=== PATIENT | female | born 1985 | race Caucasian/White ===

== ENCOUNTER 2020-04-17 19:00 | Inpatient (IN) | payer MEDICAID, OTHER ==
[~2020-04-17] VITALS: Ht 154.9 cm; Wt 82.1 kg
[2020-04-17] MEDS ORDERED: QUET300T2 PO (19:09)
[2020-04-17] MEDS ORDERED: GABA-1181 PO (19:09)
[2020-04-17 19:54] LABS: BASOPHILS % (AUTO) 0.9 % (0.0-2.0); EOSINOPHILS % (AUTO) 1.2 % (1.0-6.0); HEMATOCRIT 42.9 % (36-46); HEMOGLOBIN 14.1 g/dL (12.0-16.0); LYMPHOCYTES # (AUTO) 2.3 K/uL (1.0-4.8); LYMPHOCYTES % (AUTO) 21.5 % (22.0-44.0); MEAN CORPUSCULAR HEMOGLOBIN 28.8 pg (26.0-34.0); MEAN CORPUSCULAR HGB CONC 32.9 G/dL (31.0-37.0); MEAN CORPUSCULAR VOLUME 88 fL (80-100); MONOCYTES # (AUTO) 0.4 K/uL (0.1-1.0); MONOCYTES % (AUTO) 4.2 % (2.0-9.0); NEUTROPHILS # (AUTO) 7.6 K/uL (1.8-7.7); NEUTROPHILS % (AUTO) 72.2 % (40.0-70.0); PLATELET COUNT (AUTO) 268 K/uL (150-450); RED CELL DISTRIBUTION WIDTH 13.2 % (11.5-14.5)
[2020-04-17 20:31] LABS: ANION GAP 9 mmol/L (8-16); CALCIUM, TOTAL 9.2 mg/dL (8.8-10.5); CARBON DIOXIDE 25 mmol/L (22-29); CHLORIDE 103 mmol/L (98-107); CREATININE 0.93 mg/dL (0.60-1.30); GLOMERULAR FILTR. RATE CALC > 60 mL/min (>60); GLUCOSE,RANDOM 107 mg/dL (70-110); POTASSIUM 4.3 mmol/L (3.5-5.1); SODIUM SERUM 137 mmol/L (136-145); UREA NITROGEN, BLOOD 7 mg/dL (7-18)
[2020-04-17 20:45] LABS: ALANINE AMINOTRANSFERASE 20 U/L (12-78); ALBUMIN 4.1 g/dL (3.4-5.0); ALKALINE PHOSPHATASE 58 U/L (46-116); ASPARTATE AMINOTRANSFERASE 105 U/L (15-37); BILIRUBIN,TOTAL 0.3 mg/dL (0.1-1.0); HCG,QUANTITATIVE 1 mIU/mL (0-6); TOTAL PROTEIN, SERUM 7.4 g/dL (6.4-8.2)
[2020-04-18] MEDS ORDERED: QUEtiapine FUMARATE 100 MG TABLET PO PRN (00:45)
[2020-04-18 04:35] VITALS: BP 106/78
[2020-04-18 08:09] VITALS: BP 112/58
[2020-04-18] MEDS: GABAPENTIN 300 MG CAPSULE PO SCH ×2 (08:51→12:02)
[2020-04-18] MEDS: LORazepam 2 MG TABLET PO PRN ×2 (10:00→17:15)
[2020-04-18] MEDS ORDERED: ACETAMINOPHEN 325 MG TABLET PO PRN (14:45)
[2020-04-18] MEDS ORDERED: HydrOXYzine PAMOATE 50 MG CAPSULE PO PRN (14:45)
[2020-04-18] MEDS ORDERED: GuaiFENesin/D-METHORPHAN [SUGAR-FREE] 200-20MG/10 ML SYRUP UDCUP PO PRN (14:45)
[2020-04-18] MEDS ORDERED: TUBERCULIN, PURIFIED PROTEIN DERIVATIVE 5 TU/0.1 ML SYRINGE ID ONE (14:45)
[2020-04-18] MEDS ORDERED: MAG HYDROX/AL HYDROX/SIMETH ES 30 ML SUSPENSION UDCUP PO PRN (14:45)
[2020-04-18] MEDS ORDERED: LOPERAMIDE HCL 2 MG CAPSULE PO PRN (14:45)
[2020-04-18] MEDS ORDERED: PROMETHAZINE HCL 25 MG TABLET PO PRN (14:45)
[2020-04-18] MEDS ORDERED: MAGNESIUM HYDROXIDE SUSPENSION 30 ML UDCUP PO PRN (14:45)
[2020-04-18 16:39] VITALS: BP 130/70
[2020-04-18] MEDS: LITHIUM CARBONATE 300 MG CAPSULE PO SCH (16:45)
[2020-04-18] MEDS: THIAMINE 100 MG TABLET PO SCH (16:45)
[2020-04-18] MEDS: LamoTRIgine 25 MG TABLET PO SCH (20:54)
[2020-04-18] MEDS: ZOLPIDEM TARTRATE 10 MG TABLET PO PRN (20:55)
[2020-04-18] MEDS: QUEtiapine FUMARATE 100 MG TABLET PO SCH (20:55)
[2020-04-18] MEDS ORDERED: QUEtiapine FUMARATE 300 MG TABLET PO SCH ×2 (21:00)
[2020-04-19 02:22] VITALS: BP 128/70
[2020-04-19] MEDS: LITHIUM CARBONATE 300 MG CAPSULE PO SCH ×2 (06:14→16:35)
[2020-04-19 08:15] LABS: LITHIUM 0.76 mmol/L (0.60-1.20)
[2020-04-19] MEDS: MULTIVITAMINS WITH MINERALS, THERAPEUTIC TABLET PO SCH (08:23)
[2020-04-19] MEDS: THIAMINE 100 MG TABLET PO SCH ×2 (08:23→16:35)
[2020-04-19] MEDS: FOLIC ACID 1 MG TABLET PO SCH (08:23)
[2020-04-19 08:25] VITALS: BP 105/70
[2020-04-19] MEDS: LORazepam 2 MG TABLET PO PRN (08:26)
[2020-04-19 08:50] LABS: CHOL/HDL RATIO 5.2 (3.9-5.7); FREE T4 (FREE THYROXINE) 0.99 ng/dL (0.76-1.46); THYROID STIMULATING HORMONE 1.16 uIU/mL (0.36-3.74)
[2020-04-19 16:55] VITALS: BP 121/91
[2020-04-19] MEDS: ZOLPIDEM TARTRATE 10 MG TABLET PO PRN (20:25)
[2020-04-19] MEDS: LamoTRIgine 25 MG TABLET PO SCH (20:25)
[2020-04-19] MEDS: QUEtiapine FUMARATE 100 MG TABLET PO SCH (20:26)
[2020-04-20 04:37] VITALS: BP 114/82
[2020-04-20] MEDS: LITHIUM CARBONATE 300 MG CAPSULE PO SCH ×2 (06:19→16:41)
[2020-04-20] MEDS: MULTIVITAMINS WITH MINERALS, THERAPEUTIC TABLET PO SCH (08:01)
[2020-04-20] MEDS: FOLIC ACID 1 MG TABLET PO SCH (08:01)
[2020-04-20] MEDS: THIAMINE 100 MG TABLET PO SCH ×2 (08:03→16:41)
[2020-04-20] MEDS: LITHIUM CARBONATE 300 MG TABLET PO SCH (08:03)
[2020-04-20 08:08] VITALS: BP 112/73
[2020-04-20] MEDS: LORazepam 2 MG TABLET PO PRN (08:20)
[2020-04-20] MEDS: NICOTINE 14 MG/24 HOUR PATCH TD SCH (13:12)
[2020-04-20 16:03] VITALS: BP 120/76
[2020-04-20] MEDS: LamoTRIgine 25 MG TABLET PO SCH (20:18)
[2020-04-20] MEDS: ZOLPIDEM TARTRATE 10 MG TABLET PO PRN (20:18)
[2020-04-20] MEDS ORDERED: QUEtiapine FUMARATE 200 MG TABLET PO SCH (21:00)
[2020-04-21 06:11] VITALS: BP 109/77
[2020-04-21] MEDS: LITHIUM CARBONATE 300 MG CAPSULE PO SCH ×3 (06:37→16:53)
[2020-04-21] MEDS: MULTIVITAMINS WITH MINERALS, THERAPEUTIC TABLET PO SCH (07:44)
[2020-04-21] MEDS: LITHIUM CARBONATE 300 MG TABLET PO SCH (07:44)
[2020-04-21] MEDS: FOLIC ACID 1 MG TABLET PO SCH (07:44)
[2020-04-21] MEDS: THIAMINE 100 MG TABLET PO SCH ×2 (07:44→17:10)
[2020-04-21 08:21] VITALS: BP 105/73
[2020-04-21] MEDS: NICOTINE 14 MG/24 HOUR PATCH TD SCH (09:26)
[2020-04-21 16:00] VITALS: BP 109/75
[2020-04-21] MEDS: QUEtiapine FUMARATE 200 MG TABLET PO SCH (20:42)
[2020-04-21] MEDS: LamoTRIgine 25 MG TABLET PO SCH (20:43)
[2020-04-21] MEDS: ZOLPIDEM TARTRATE 10 MG TABLET PO PRN (21:20)
[2020-04-22 02:19] VITALS: BP 110/68
[2020-04-22 08:10] VITALS: BP 113/78
[2020-04-22] MEDS: THIAMINE 100 MG TABLET PO SCH ×2 (08:49→17:08)
[2020-04-22] MEDS: FluvoxaMINE MALEATE 50 MG TABLET PO SCH (08:49)
[2020-04-22] MEDS: LITHIUM CARBONATE 300 MG CAPSULE PO SCH ×3 (08:49→17:08)
[2020-04-22] MEDS: FOLIC ACID 1 MG TABLET PO SCH (08:49)
[2020-04-22] MEDS: NICOTINE 14 MG/24 HOUR PATCH TD SCH (08:52)
[2020-04-22] MEDS: LORazepam 2 MG TABLET PO PRN ×2 (08:53→17:08)
[2020-04-22] MEDS: MULTIVITAMINS WITH MINERALS, THERAPEUTIC TABLET PO SCH (09:16)
[2020-04-22 16:14] VITALS: BP 113/76
[2020-04-22] MEDS: QUEtiapine FUMARATE 200 MG TABLET PO SCH (21:08)
[2020-04-22] MEDS: LamoTRIgine 25 MG TABLET PO SCH (21:08)
[2020-04-23 01:26] VITALS: BP 105/68
[2020-04-23 08:22] VITALS: BP 119/78
[2020-04-23] MEDS: LITHIUM CARBONATE 300 MG CAPSULE PO SCH ×3 (09:10→17:32)
[2020-04-23] MEDS: THIAMINE 100 MG TABLET PO SCH ×2 (09:10→17:32)
[2020-04-23] MEDS: MULTIVITAMINS WITH MINERALS, THERAPEUTIC TABLET PO SCH (09:10)
[2020-04-23] MEDS: FOLIC ACID 1 MG TABLET PO SCH (09:10)
[2020-04-23] MEDS: FluvoxaMINE MALEATE 50 MG TABLET PO SCH (09:11)
[2020-04-23] MEDS: NICOTINE 14 MG/24 HOUR PATCH TD SCH (09:11)
[2020-04-23] MEDS: LORazepam 2 MG TABLET PO PRN (12:41)
[2020-04-23 16:28] VITALS: BP 120/70
[2020-04-23] MEDS: LamoTRIgine 25 MG TABLET PO SCH (20:12)
[2020-04-23] MEDS: QUEtiapine FUMARATE 200 MG TABLET PO SCH (20:12)
[2020-04-23] MEDS ORDERED: TraZODone HCL 150 MG TABLET PO SCH (21:00)
[2020-04-24 02:49] VITALS: BP 110/66
[2020-04-24 08:39] VITALS: BP 116/76
[2020-04-24] MEDS: FluvoxaMINE MALEATE 50 MG TABLET PO SCH (08:41)
[2020-04-24] MEDS: FOLIC ACID 1 MG TABLET PO SCH (08:41)
[2020-04-24] MEDS: MULTIVITAMINS WITH MINERALS, THERAPEUTIC TABLET PO SCH (08:42)
[2020-04-24] MEDS: LITHIUM CARBONATE 300 MG CAPSULE PO SCH ×3 (08:42→16:19)
[2020-04-24] MEDS: THIAMINE 100 MG TABLET PO SCH ×2 (08:42→16:19)
[2020-04-24] MEDS: NICOTINE 14 MG/24 HOUR PATCH TD SCH (08:45)
[2020-04-24 16:14] VITALS: BP 100/65
[2020-04-24] MEDS: LamoTRIgine 25 MG TABLET PO SCH (20:45)
[2020-04-24] MEDS ORDERED: QUEtiapine FUMARATE 200 MG TABLET PO SCH (21:00)
[2020-04-25 02:02] VITALS: BP 99/68
[2020-04-25 08:14] VITALS: BP 106/59
[2020-04-25] MEDS: MULTIVITAMINS WITH MINERALS, THERAPEUTIC TABLET PO SCH (08:41)
[2020-04-25] MEDS: LITHIUM CARBONATE 300 MG CAPSULE PO SCH ×3 (08:41→17:05)
[2020-04-25] MEDS: THIAMINE 100 MG TABLET PO SCH ×2 (08:41→17:05)
[2020-04-25] MEDS: FOLIC ACID 1 MG TABLET PO SCH (08:41)
[2020-04-25] MEDS: FluvoxaMINE MALEATE 50 MG TABLET PO SCH (08:47)
[2020-04-25] MEDS: NICOTINE 14 MG/24 HOUR PATCH TD SCH (09:37)
[2020-04-25 16:23] VITALS: BP 130/90
[2020-04-25] MEDS: LITHIUM CARBONATE 300 MG TABLET PO SCH (21:00)
[2020-04-25] MEDS ORDERED: QUEtiapine FUMARATE 300 MG TABLET PO SCH (21:00)
[2020-04-25] MEDS: LamoTRIgine 25 MG TABLET PO SCH (21:11)
[2020-04-26] MEDS: ZOLPIDEM TARTRATE 10 MG TABLET PO PRN (00:19)
[2020-04-26] MEDS: LORazepam 2 MG TABLET PO PRN ×2 (00:19→20:12)
[2020-04-26 01:30] VITALS: BP 116/88
[2020-04-26 08:24] VITALS: BP 106/67
[2020-04-26] MEDS: MULTIVITAMINS WITH MINERALS, THERAPEUTIC TABLET PO SCH (08:30)
[2020-04-26] MEDS: FluvoxaMINE MALEATE 50 MG TABLET PO SCH (08:30)
[2020-04-26] MEDS: FOLIC ACID 1 MG TABLET PO SCH (08:30)
[2020-04-26] MEDS: THIAMINE 100 MG TABLET PO SCH ×2 (08:31→16:20)
[2020-04-26] MEDS: NICOTINE 14 MG/24 HOUR PATCH TD SCH (08:31)
[2020-04-26] MEDS: LITHIUM CARBONATE 300 MG CAPSULE PO SCH ×3 (08:35→16:20)
[2020-04-26 16:18] VITALS: BP 125/82
[2020-04-26] MEDS: LamoTRIgine 25 MG TABLET PO SCH (20:01)
[2020-04-26] MEDS: QUEtiapine FUMARATE 200 MG TABLET PO SCH (20:02)
[2020-04-26] MEDS: ZOLPIDEM TARTRATE 10 MG TABLET PO SCH (20:02)
[2020-04-26] MEDS: LITHIUM CARBONATE 300 MG TABLET PO SCH (20:02)
[2020-04-27 06:34] VITALS: BP 104/63
[2020-04-27 08:24] VITALS: BP 102/70
[2020-04-27] MEDS: THIAMINE 100 MG TABLET PO SCH ×2 (08:30→16:14)
[2020-04-27] MEDS: FluvoxaMINE MALEATE 50 MG TABLET PO SCH (08:30)
[2020-04-27] MEDS: LITHIUM CARBONATE 300 MG CAPSULE PO SCH ×3 (08:30→16:16)
[2020-04-27] MEDS: FOLIC ACID 1 MG TABLET PO SCH (08:30)
[2020-04-27] MEDS: MULTIVITAMINS WITH MINERALS, THERAPEUTIC TABLET PO SCH (08:30)
[2020-04-27] MEDS: NICOTINE 14 MG/24 HOUR PATCH TD SCH (08:31)
[2020-04-27] MEDS ORDERED: LITH300C3 PO (14:15)
[2020-04-27] MEDS ORDERED: LAMO25TA66 PO (14:15)
[2020-04-27] MEDS ORDERED: QUET200T29 PO (14:15)
[2020-04-27] MEDS ORDERED: FLUV50 PO (14:15)
[2020-04-27 16:11] VITALS: BP 114/71
[2020-04-27] MEDS: LITHIUM CARBONATE 300 MG TABLET PO SCH (20:36)
[2020-04-27] MEDS: QUEtiapine FUMARATE 200 MG TABLET PO SCH (20:36)
[2020-04-27] MEDS: LamoTRIgine 25 MG TABLET PO SCH (20:36)
[2020-04-27] MEDS: ZOLPIDEM TARTRATE 10 MG TABLET PO SCH (20:36)
[2020-04-27] MEDS: LORazepam 2 MG TABLET PO PRN (20:49)
[2020-04-28 06:26] VITALS: BP 107/68
[2020-04-28 08:22] VITALS: BP 111/72
[2020-04-28] MEDS: FluvoxaMINE MALEATE 50 MG TABLET PO SCH (09:02)
[2020-04-28] MEDS: LITHIUM CARBONATE 300 MG CAPSULE PO SCH ×3 (09:02→16:39)
[2020-04-28] MEDS: NICOTINE 14 MG/24 HOUR PATCH TD SCH (09:02)
[2020-04-28] MEDS: FOLIC ACID 1 MG TABLET PO SCH (09:02)
[2020-04-28] MEDS: THIAMINE 100 MG TABLET PO SCH (09:02)
[2020-04-28] MEDS: MULTIVITAMINS WITH MINERALS, THERAPEUTIC TABLET PO SCH (09:02)
[2020-04-28 16:06] VITALS: BP 123/67
[2020-04-28] MEDS: LamoTRIgine 25 MG TABLET PO SCH (21:02)
[2020-04-28] MEDS: QUEtiapine FUMARATE 300 MG TABLET PO SCH (21:03)
[2020-04-28] MEDS: LITHIUM CARBONATE 300 MG TABLET PO SCH (21:03)
[2020-04-28] MEDS: ZOLPIDEM TARTRATE 10 MG TABLET PO SCH (21:03)
[2020-04-28] MEDS: LORazepam 2 MG TABLET PO PRN (21:24)
[2020-04-29 05:32] VITALS: BP 112/73
[2020-04-29 08:44] VITALS: BP 121/94
[2020-04-29] MEDS: FluvoxaMINE MALEATE 50 MG TABLET PO SCH (09:27)
[2020-04-29] MEDS: MULTIVITAMINS WITH MINERALS, THERAPEUTIC TABLET PO SCH (09:27)
[2020-04-29] MEDS: LITHIUM CARBONATE 300 MG CAPSULE PO SCH ×3 (09:27→16:40)
[2020-04-29] MEDS: NICOTINE 14 MG/24 HOUR PATCH TD SCH (09:28)
[2020-04-29 17:16] VITALS: BP 110/75
[2020-04-29] MEDS: QUEtiapine FUMARATE 300 MG TABLET PO SCH (20:26)
[2020-04-29] MEDS: LamoTRIgine 25 MG TABLET PO SCH (20:26)
[2020-04-29] MEDS: ZOLPIDEM TARTRATE 10 MG TABLET PO SCH (20:26)
[2020-04-29] MEDS: LITHIUM CARBONATE 300 MG TABLET PO SCH (20:27)
[2020-04-29] MEDS: LORazepam 2 MG TABLET PO PRN (20:58)
[2020-04-30 05:43] VITALS: BP 104/68
[2020-04-30] MEDS: MULTIVITAMINS WITH MINERALS, THERAPEUTIC TABLET PO SCH (08:18)
[2020-04-30] MEDS: LITHIUM CARBONATE 300 MG CAPSULE PO SCH ×3 (08:18→17:22)
[2020-04-30] MEDS: FluvoxaMINE MALEATE 50 MG TABLET PO SCH (08:18)
[2020-04-30] MEDS: LORazepam 2 MG TABLET PO PRN ×2 (08:27→20:13)
[2020-04-30] MEDS: NICOTINE 14 MG/24 HOUR PATCH TD SCH (09:00)
[2020-04-30 09:45] VITALS: BP 112/83
[2020-04-30 16:00] VITALS: BP 116/76
[2020-04-30] MEDS: QUEtiapine FUMARATE 300 MG TABLET PO SCH (20:54)
[2020-04-30] MEDS: ZOLPIDEM TARTRATE 10 MG TABLET PO SCH (20:54)
[2020-04-30] MEDS: LamoTRIgine 25 MG TABLET PO SCH (20:54)
[2020-04-30] MEDS: LITHIUM CARBONATE 300 MG TABLET PO SCH (21:00)
[2020-05-01 05:45] VITALS: BP 118/73
[2020-05-01 08:06] VITALS: BP 119/78
[2020-05-01] MEDS: NICOTINE 14 MG/24 HOUR PATCH TD SCH (08:53)
[2020-05-01] MEDS: FluvoxaMINE MALEATE 50 MG TABLET PO SCH (08:53)
[2020-05-01] MEDS: MULTIVITAMINS WITH MINERALS, THERAPEUTIC TABLET PO SCH (08:53)
[2020-05-01] MEDS: LITHIUM CARBONATE 300 MG CAPSULE PO SCH ×3 (08:57→16:14)
[2020-05-01 16:36] VITALS: BP 114/75
[2020-05-01] MEDS: QUEtiapine FUMARATE 300 MG TABLET PO SCH (20:25)
[2020-05-01] MEDS: LORazepam 2 MG TABLET PO PRN (20:25)
[2020-05-01] MEDS: LamoTRIgine 25 MG TABLET PO SCH (20:29)
[2020-05-01] MEDS: ZOLPIDEM TARTRATE 10 MG TABLET PO SCH (20:29)
[2020-05-01] MEDS: LITHIUM CARBONATE 300 MG TABLET PO SCH (21:00)
[2020-05-02 06:28] VITALS: BP 110/70
[2020-05-02 08:18] VITALS: BP 112/76
[2020-05-02] MEDS: MULTIVITAMINS WITH MINERALS, THERAPEUTIC TABLET PO SCH (08:48)
[2020-05-02] MEDS: LITHIUM CARBONATE 300 MG CAPSULE PO SCH ×3 (08:48→16:05)
[2020-05-02] MEDS: FluvoxaMINE MALEATE 50 MG TABLET PO SCH (08:48)
[2020-05-02] MEDS: NICOTINE 14 MG/24 HOUR PATCH TD SCH (08:48)
[2020-05-02 16:27] VITALS: BP 122/78
[2020-05-02] MEDS: ZOLPIDEM TARTRATE 10 MG TABLET PO SCH (19:54)
[2020-05-02] MEDS: LORazepam 2 MG TABLET PO PRN (19:55)
[2020-05-02] MEDS: QUEtiapine FUMARATE 300 MG TABLET PO SCH (19:55)
[2020-05-02] MEDS: LamoTRIgine 25 MG TABLET PO SCH (19:55)
[2020-05-02] MEDS: LITHIUM CARBONATE 300 MG TABLET PO SCH (19:55)
[2020-05-03 04:18] VITALS: BP 113/61
[2020-05-03 08:20] VITALS: BP 116/67
[2020-05-03] MEDS: LITHIUM CARBONATE 300 MG CAPSULE PO SCH ×3 (08:44→16:19)
[2020-05-03] MEDS: FluvoxaMINE MALEATE 50 MG TABLET PO SCH (08:44)
[2020-05-03] MEDS: MULTIVITAMINS WITH MINERALS, THERAPEUTIC TABLET PO SCH (08:44)
[2020-05-03] MEDS: NICOTINE 14 MG/24 HOUR PATCH TD SCH (08:44)
[2020-05-03 16:09] VITALS: BP 122/72
[2020-05-03] MEDS: LITHIUM CARBONATE 300 MG TABLET PO SCH (20:42)
[2020-05-03] MEDS: ZOLPIDEM TARTRATE 10 MG TABLET PO SCH (20:43)
[2020-05-03] MEDS: QUEtiapine FUMARATE 300 MG TABLET PO SCH (20:44)
[2020-05-03] MEDS: LORazepam 2 MG TABLET PO PRN (20:44)
[2020-05-03] MEDS: LamoTRIgine 25 MG TABLET PO SCH (20:45)
[2020-05-04 05:58] VITALS: BP 112/76
[2020-05-04] MEDS: NICOTINE 14 MG/24 HOUR PATCH TD SCH (08:36)
[2020-05-04] MEDS: FluvoxaMINE MALEATE 50 MG TABLET PO SCH (08:37)
[2020-05-04] MEDS: MULTIVITAMINS WITH MINERALS, THERAPEUTIC TABLET PO SCH (08:37)
[2020-05-04] MEDS: LITHIUM CARBONATE 300 MG CAPSULE PO SCH ×3 (08:37→16:15)
[2020-05-04 09:08] VITALS: BP 125/70
[2020-05-04 18:04] VITALS: BP 93/50
[2020-05-04] MEDS: LORazepam 2 MG TABLET PO PRN (20:30)
[2020-05-04] MEDS: LITHIUM CARBONATE 300 MG TABLET PO SCH (20:30)
[2020-05-04] MEDS: QUEtiapine FUMARATE 300 MG TABLET PO SCH (20:30)
[2020-05-04] MEDS: ZOLPIDEM TARTRATE 10 MG TABLET PO SCH (20:30)
[2020-05-04] MEDS: LamoTRIgine 25 MG TABLET PO SCH (20:30)
[2020-05-05 05:13] VITALS: BP 123/64
[2020-05-05 08:19] VITALS: BP 100/72
[2020-05-05] MEDS: NICOTINE 14 MG/24 HOUR PATCH TD SCH (09:00)
[2020-05-05] MEDS: LITHIUM CARBONATE 300 MG CAPSULE PO SCH ×3 (09:02→16:47)
[2020-05-05] MEDS: FluvoxaMINE MALEATE 50 MG TABLET PO SCH (09:02)
[2020-05-05] MEDS: MULTIVITAMINS WITH MINERALS, THERAPEUTIC TABLET PO SCH (09:02)
[2020-05-05 16:00] VITALS: BP 114/72
[2020-05-05] MEDS: ZOLPIDEM TARTRATE 10 MG TABLET PO SCH (20:34)
[2020-05-05] MEDS: LORazepam 2 MG TABLET PO PRN (20:34)
[2020-05-05] MEDS: LITHIUM CARBONATE 300 MG TABLET PO SCH (20:34)
[2020-05-05] MEDS: LamoTRIgine 25 MG TABLET PO SCH (20:34)
[2020-05-05] MEDS: QUEtiapine FUMARATE 300 MG TABLET PO SCH (20:34)
[2020-05-06 00:36] VITALS: BP 129/90
[2020-05-06 08:22] VITALS: BP 100/55
[2020-05-06] MEDS: NICOTINE 14 MG/24 HOUR PATCH TD SCH (09:01)
[2020-05-06] MEDS: FluvoxaMINE MALEATE 50 MG TABLET PO SCH (09:01)
[2020-05-06] MEDS: MULTIVITAMINS WITH MINERALS, THERAPEUTIC TABLET PO SCH (09:01)
[2020-05-06] MEDS: LITHIUM CARBONATE 300 MG CAPSULE PO SCH ×3 (09:01→16:47)
[2020-05-06 16:31] VITALS: BP 126/86
[2020-05-06] MEDS: ZOLPIDEM TARTRATE 10 MG TABLET PO SCH (20:40)
[2020-05-06] MEDS: LITHIUM CARBONATE 300 MG TABLET PO SCH (20:41)
[2020-05-06] MEDS: QUEtiapine FUMARATE 300 MG TABLET PO SCH (20:41)
[2020-05-06] MEDS: LamoTRIgine 25 MG TABLET PO SCH (20:41)
[2020-05-06] MEDS: LORazepam 2 MG TABLET PO PRN (20:41)
[2020-05-07] VITALS: BP 109/79
[2020-05-07 08:17] VITALS: BP 134/59
[2020-05-07] MEDS: LITHIUM CARBONATE 300 MG CAPSULE PO SCH ×3 (08:39→16:10)
[2020-05-07] MEDS: MULTIVITAMINS WITH MINERALS, THERAPEUTIC TABLET PO SCH (08:39)
[2020-05-07] MEDS: FluvoxaMINE MALEATE 50 MG TABLET PO SCH (08:39)
[2020-05-07] MEDS: NICOTINE 14 MG/24 HOUR PATCH TD SCH (08:39)
[2020-05-07 16:30] VITALS: BP 116/90
[2020-05-07] MEDS: ZOLPIDEM TARTRATE 10 MG TABLET PO SCH (20:05)
[2020-05-07] MEDS: QUEtiapine FUMARATE 300 MG TABLET PO SCH (20:06)
[2020-05-07] MEDS: LamoTRIgine 25 MG TABLET PO SCH (20:06)
[2020-05-07] MEDS: LITHIUM CARBONATE 300 MG TABLET PO SCH (20:06)
[2020-05-07] MEDS: LORazepam 2 MG TABLET PO PRN (20:32)
[2020-05-08] VITALS: BP 90/64
[2020-05-08 08:18] VITALS: BP 116/71
[2020-05-08] MEDS: LITHIUM CARBONATE 300 MG CAPSULE PO SCH ×3 (08:44→16:08)
[2020-05-08] MEDS: MULTIVITAMINS WITH MINERALS, THERAPEUTIC TABLET PO SCH (08:44)
[2020-05-08] MEDS: NICOTINE 14 MG/24 HOUR PATCH TD SCH (08:44)
[2020-05-08] MEDS: FluvoxaMINE MALEATE 50 MG TABLET PO SCH (08:44)
[2020-05-08 16:28] VITALS: BP 119/65
[2020-05-08] MEDS: QUEtiapine FUMARATE 300 MG TABLET PO SCH (20:04)
[2020-05-08] MEDS: LORazepam 2 MG TABLET PO PRN (20:04)
[2020-05-08] MEDS: LamoTRIgine 25 MG TABLET PO SCH (20:04)
[2020-05-08] MEDS: ZOLPIDEM TARTRATE 10 MG TABLET PO SCH (20:04)
[2020-05-08] MEDS: LITHIUM CARBONATE 300 MG TABLET PO SCH (20:04)
[2020-05-09 05:31] VITALS: BP 114/69
[2020-05-09 08:16] VITALS: BP 120/90
[2020-05-09] MEDS: NICOTINE 14 MG/24 HOUR PATCH TD SCH (08:32)
[2020-05-09] MEDS: MULTIVITAMINS WITH MINERALS, THERAPEUTIC TABLET PO SCH (08:33)
[2020-05-09] MEDS: FluvoxaMINE MALEATE 50 MG TABLET PO SCH (08:33)
[2020-05-09] MEDS: LITHIUM CARBONATE 300 MG CAPSULE PO SCH ×3 (08:33→16:19)
[2020-05-09 17:52] VITALS: BP 114/80
[2020-05-09] MEDS: LORazepam 2 MG TABLET PO PRN (20:02)
[2020-05-09] MEDS: LamoTRIgine 25 MG TABLET PO SCH (21:18)
[2020-05-09] MEDS: QUEtiapine FUMARATE 300 MG TABLET PO SCH (21:18)
[2020-05-09] MEDS: LITHIUM CARBONATE 300 MG TABLET PO SCH (21:18)
[2020-05-09] MEDS: ZOLPIDEM TARTRATE 10 MG TABLET PO SCH (21:18)
[2020-05-10] VITALS: BP 104/68
[2020-05-10 08:17] VITALS: BP 112/74
[2020-05-10] MEDS: LITHIUM CARBONATE 300 MG CAPSULE PO SCH ×3 (09:09→16:29)
[2020-05-10] MEDS: MULTIVITAMINS WITH MINERALS, THERAPEUTIC TABLET PO SCH (09:09)
[2020-05-10] MEDS: FluvoxaMINE MALEATE 50 MG TABLET PO SCH (09:10)
[2020-05-10] MEDS: NICOTINE 14 MG/24 HOUR PATCH TD SCH (09:10)
[2020-05-10 16:04] VITALS: BP 110/73
[2020-05-10] MEDS: ZOLPIDEM TARTRATE 10 MG TABLET PO SCH (20:06)
[2020-05-10] MEDS: QUEtiapine FUMARATE 300 MG TABLET PO SCH (20:06)
[2020-05-10] MEDS: LITHIUM CARBONATE 300 MG TABLET PO SCH (20:07)
[2020-05-10] MEDS: LamoTRIgine 25 MG TABLET PO SCH (20:07)
[2020-05-10] MEDS: LORazepam 2 MG TABLET PO PRN (20:14)
[2020-05-11 02:13] VITALS: BP 104/62
[2020-05-11 08:06] VITALS: BP 117/72
[2020-05-11] MEDS: LITHIUM CARBONATE 300 MG CAPSULE PO SCH ×3 (08:25→17:04)
[2020-05-11] MEDS: MULTIVITAMINS WITH MINERALS, THERAPEUTIC TABLET PO SCH (08:25)
[2020-05-11] MEDS: NICOTINE 14 MG/24 HOUR PATCH TD SCH (08:26)
[2020-05-11] MEDS: FluvoxaMINE MALEATE 50 MG TABLET PO SCH (08:26)
[2020-05-11 16:17] VITALS: BP 127/90
[2020-05-11] MEDS: LITHIUM CARBONATE 300 MG TABLET PO SCH (20:02)
[2020-05-11] MEDS: QUEtiapine FUMARATE 300 MG TABLET PO SCH (20:02)
[2020-05-11] MEDS: LORazepam 2 MG TABLET PO PRN (20:02)
[2020-05-11] MEDS: ZOLPIDEM TARTRATE 10 MG TABLET PO SCH (20:02)
[2020-05-11] MEDS: LamoTRIgine 25 MG TABLET PO SCH (20:02)
[2020-05-12 04:48] VITALS: BP 112/88
[2020-05-12 08:18] VITALS: BP 162/77
[2020-05-12] MEDS: MULTIVITAMINS WITH MINERALS, THERAPEUTIC TABLET PO SCH (08:32)
[2020-05-12] MEDS: LITHIUM CARBONATE 300 MG CAPSULE PO SCH ×3 (08:32→16:11)
[2020-05-12] MEDS: NICOTINE 14 MG/24 HOUR PATCH TD SCH (08:33)
[2020-05-12] MEDS: LORazepam 2 MG TABLET PO PRN (08:56)
[2020-05-12] MEDS ORDERED: FluvoxaMINE MALEATE 50 MG TABLET PO SCH (09:00)
[2020-05-12 13:18] VITALS: BP 119/85
[2020-05-12] MEDS ORDERED: FLUV50 PO (13:29)
[2020-05-12] MEDS ORDERED: LAMO25TA66 PO (13:29)
[2020-05-12] MEDS ORDERED: QUET300T18 PO (13:29)
[2020-05-12] MEDS ORDERED: LITH300T29 PO (14:18)
[2020-05-12] MEDS ORDERED: LITH300T PO (14:20)
[2020-05-12 17:55] VITALS: BP 127/88
== END 2020-05-12 17:05 | disposition home or self-care (01) | DRG 753 ==
LOC: EMS 19:00 → B3A 04-18 00:33
PROVIDERS: ADMIT Psychiatry & Neurology Psychiatry; ATTEND Psychiatry & Neurology Psychiatry
DX: F31.4 Bipolar disorder, current episode depressed, severe, without psychotic features (principal); R45.851 Suicidal ideations; Z91.19 Patient's noncompliance with other medical treatment and regimen; Z59.0 Homelessness; E66.9 Obesity, unspecified; F17.210 Nicotine dependence, cigarettes, uncomplicated; G47.00 Insomnia, unspecified; Z68.33 Body mass index [BMI] 33.0-33.9, adult; Z79.899 Other long term (current) drug therapy; Z81.8 Family history of other mental and behavioral disorders; Z03.818 Encounter for observation for suspected exposure to other biological agents ruled out
CPT/HCPCS: 83036; 84439; 84443; 86592; G0480

== ENCOUNTER 2020-11-04 12:59 | Inpatient (IN) | payer MEDICAID, OTHER ==
[~2020-11-04] VITALS: Ht 154.9 cm; Wt 85.6 kg
[~2020-11-04 12:59] MED LIST: FLUV50 PO; LAMO25TA66 PO; LITH300C3 PO; LITH300T PO; QUET300T18 PO
[2020-11-04] MEDS ORDERED: HALO5TAB2 PO (16:16)
[2020-11-04] MEDS ORDERED: ACET600C5 PO (16:16)
[2020-11-04] MEDS ORDERED: OMEG-135 PO (16:16)
[2020-11-04 16:54] LABS: COVID AG,FIA SOURCE NASAL SWAB
[2020-11-04 18:04] LABS: BASOPHILS % (AUTO) 0.9 % (0.0-2.0); EOSINOPHILS % (AUTO) 1.6 % (1.0-6.0); HEMATOCRIT 37.9 % (36-46); HEMOGLOBIN 12.7 g/dL (12.0-16.0); LYMPHOCYTES # (AUTO) 1.9 K/uL (1.0-4.8); LYMPHOCYTES % (AUTO) 24.5 % (22.0-44.0); MEAN CORPUSCULAR HEMOGLOBIN 28.6 pg (26.0-34.0); MEAN CORPUSCULAR HGB CONC 33.5 G/dL (31.0-37.0); MEAN CORPUSCULAR VOLUME 85 fL (80-100); MONOCYTES # (AUTO) 0.4 K/uL (0.1-1.0); MONOCYTES % (AUTO) 4.6 % (2.0-9.0); NEUTROPHILS # (AUTO) 5.3 K/uL (1.8-7.7); NEUTROPHILS % (AUTO) 68.4 % (40.0-70.0); PLATELET COUNT (AUTO) 226 K/uL (150-450); RED BLOOD CELL COUNT(AUTO) 4.45 MIL/uL (4.00-5.20); RED CELL DISTRIBUTION WIDTH 14.2 % (11.5-14.5)
[2020-11-04 18:15] LABS: ANION GAP 12 mmol/L (8-16); CALCIUM, TOTAL 8.8 mg/dL (8.8-10.5); CARBON DIOXIDE 23 mmol/L (22-29); CHLORIDE 105 mmol/L (98-107); CREATININE 0.74 mg/dL (0.60-1.30); GLOMERULAR FILTR. RATE CALC > 60 mL/min (>60); GLUCOSE,RANDOM 97 mg/dL (70-110); POTASSIUM 3.4 mmol/L (3.5-5.1); SODIUM SERUM 140 mmol/L (136-145); UREA NITROGEN, BLOOD 8 mg/dL (7-18)
[2020-11-04 18:25] LABS: ALANINE AMINOTRANSFERASE 36 U/L (12-78); ALBUMIN 3.8 g/dL (3.4-5.0); ALKALINE PHOSPHATASE 85 U/L (46-116); ASPARTATE AMINOTRANSFERASE 12 U/L (15-37); BILIRUBIN,TOTAL 0.3 mg/dL (0.1-1.0); HCG,QUANTITATIVE 1 mIU/mL (0-6); TOTAL PROTEIN, SERUM 7.1 g/dL (6.4-8.2)
[2020-11-04 18:45] VITALS: BP 127/84
[2020-11-04] MEDS ORDERED: HALOPERIDOL 5 MG TABLET PO PRN (19:45)
[2020-11-04] MEDS ORDERED: ZOLPIDEM TARTRATE 10 MG TABLET PO PRN (19:45)
[2020-11-04] MEDS ORDERED: FLUV25TA2 PO (20:00)
[2020-11-04] MEDS ORDERED: NICOTINE 7 MG/24 HOUR PATCH TD PRN (20:15)
[2020-11-04] MEDS: QUEtiapine FUMARATE 300 MG TABLET PO SCH (20:45)
[2020-11-04] MEDS ORDERED: INFLUENZA VIRUS VACCINE QVS 2020-21 (6MO+)/PF 60 MCG/0.5 ML SYRINGE IM ONE (21:00)
[2020-11-05 07:24] LABS: CHOL/HDL RATIO 6.3 (3.9-5.7); POTASSIUM 3.5 mmol/L (3.5-5.1)
[2020-11-05] MEDS ORDERED: IBUPROFEN 400 MG TABLET PO PRN (07:30)
[2020-11-05] MEDS ORDERED: LOPERAMIDE HCL 2 MG CAPSULE PO PRN (07:30)
[2020-11-05] MEDS ORDERED: ALBUTEROL SULFATE HFA 90 MCG/PUFF 8 GM INHALER IH PRN (07:30)
[2020-11-05] MEDS ORDERED: DOCUSATE SODIUM 100 MG CAPSULE PO PRN (07:30)
[2020-11-05] MEDS ORDERED: GuaiFENesin/D-METHORPHAN [SUGAR-FREE] 200-20MG/10 ML SYRUP UDCUP PO PRN (07:30)
[2020-11-05] MEDS ORDERED: MAGNESIUM HYDROXIDE SUSPENSION 30 ML UDCUP PO PRN (07:30)
[2020-11-05] MEDS ORDERED: PETROLATUM,WHITE 28 GM JELLY TP PRN (07:30)
[2020-11-05] MEDS ORDERED: ACETAMINOPHEN 325 MG TABLET PO PRN (07:30)
[2020-11-05] MEDS ORDERED: ONDANSETRON HCL 4 MG TABLET PO PRN (07:30)
[2020-11-05] MEDS ORDERED: CloNIDine HCL 0.1 MG TABLET PO PRN (07:30)
[2020-11-05] MEDS ORDERED: MAG HYDROX/AL HYDROX/SIMETH ES 30 ML SUSPENSION UDCUP PO PRN (07:30)
[2020-11-05] MEDS ORDERED: NICOTINE 14 MG/24 HOUR PATCH TD PRN (07:30)
[2020-11-05 08:00] VITALS: BP 119/73
[2020-11-05 08:32] LABS: BILIRUBIN,URINE NEGATIVE (NEGATIVE); GLUCOSE, URINE (UA) NEGATIVE (NEGATIVE); KETONES,URINE NEGATIVE (NEGATIVE); LEUKOCYTE ESTERASE ,URINE NEGATIVE (NEGATIVE); NITRATE,URINE NEGATIVE (NEGATIVE); OCCULT BLOOD,URINE NEGATIVE (NEGATIVE); PROTEIN,URINE NEGATIVE (NEGATIVE); UROBILINOGEN,URINE 0.2 mg/dL (<=1.0)
[2020-11-05 08:39] LABS: APPEARANCE,URINE CLEAR (CLEAR)
[2020-11-05 08:47] LABS: AMPHET/METH SCREEN,URINE NEGATIVE (NEGATIVE); BARBITURATE SCREEN, URINE NEGATIVE (NEGATIVE); BENZODIAZEPINES SCREEN,URINE NEGATIVE (NEGATIVE); CANNABINOID SCREEN,URINE NEGATIVE (NEGATIVE); COCAINE SCREEN,URINE NEGATIVE (NEGATIVE); METHADONE SCREEN, URINE NEGATIVE (NEGATIVE); OPIATE SCREEN,URINE NEGATIVE (NEGATIVE)
[2020-11-05 08:58] LABS: PHENCYCLIDINE SCREEN,URINE NEGATIVE (NEGATIVE)
[2020-11-05] MEDS ORDERED: FluvoxaMINE MALEATE 50 MG TABLET PO SCH (09:00)
[2020-11-05] MEDS: OMEGA-3/DHA/EPA/FISH OIL 1,000 MG CAPSULE PO SCH (09:01)
[2020-11-05 16:15] VITALS: BP 126/91
[2020-11-05] MEDS: GABAPENTIN 300 MG CAPSULE PO SCH (16:38)
[2020-11-05] MEDS: QUEtiapine FUMARATE 300 MG TABLET PO SCH (20:36)
[2020-11-06 08:00] VITALS: BP 113/78
[2020-11-06] MEDS: FluvoxaMINE MALEATE 50 MG TABLET PO SCH (10:01)
[2020-11-06] MEDS: OMEGA-3/DHA/EPA/FISH OIL 1,000 MG CAPSULE PO SCH (10:02)
[2020-11-06] MEDS: GABAPENTIN 300 MG CAPSULE PO SCH ×2 (10:02→16:30)
[2020-11-06 16:11] VITALS: BP 104/74
[2020-11-06] MEDS: QUEtiapine FUMARATE 300 MG TABLET PO SCH (20:43)
[2020-11-07 08:00] VITALS: BP 112/82
[2020-11-07] MEDS: OMEGA-3/DHA/EPA/FISH OIL 1,000 MG CAPSULE PO SCH (08:18)
[2020-11-07] MEDS: FluvoxaMINE MALEATE 50 MG TABLET PO SCH (08:18)
[2020-11-07] MEDS: GABAPENTIN 300 MG CAPSULE PO SCH ×2 (08:18→16:03)
[2020-11-07] MEDS: LORazepam 2 MG TABLET PO PRN (16:03)
[2020-11-07 16:20] VITALS: BP 115/81
[2020-11-07] MEDS: QUEtiapine FUMARATE 300 MG TABLET PO SCH (20:04)
[2020-11-08 08:00] VITALS: BP 116/74
[2020-11-08] MEDS: OMEGA-3/DHA/EPA/FISH OIL 1,000 MG CAPSULE PO SCH (08:22)
[2020-11-08] MEDS: FluvoxaMINE MALEATE 50 MG TABLET PO SCH (08:22)
[2020-11-08] MEDS: GABAPENTIN 300 MG CAPSULE PO SCH ×2 (08:22→16:54)
[2020-11-08 16:50] VITALS: BP 108/78
[2020-11-08] MEDS: QUEtiapine FUMARATE 300 MG TABLET PO SCH (21:08)
[2020-11-09 08:00] VITALS: BP 118/87
[2020-11-09] MEDS: GABAPENTIN 300 MG CAPSULE PO SCH ×2 (08:23→16:29)
[2020-11-09] MEDS: FluvoxaMINE MALEATE 50 MG TABLET PO SCH (08:23)
[2020-11-09] MEDS: OMEGA-3/DHA/EPA/FISH OIL 1,000 MG CAPSULE PO SCH (08:23)
[2020-11-09] MEDS ORDERED: HALOPERIDOL 5 MG TABLET PO PRN (11:00)
[2020-11-09 16:12] VITALS: BP 118/81
[2020-11-09] MEDS: QUEtiapine FUMARATE 300 MG TABLET PO SCH (20:06)
[2020-11-10 08:00] VITALS: BP 118/81
[2020-11-10] MEDS: OMEGA-3/DHA/EPA/FISH OIL 1,000 MG CAPSULE PO SCH (08:19)
[2020-11-10] MEDS: GABAPENTIN 300 MG CAPSULE PO SCH ×2 (08:19→16:09)
[2020-11-10] MEDS: FluvoxaMINE MALEATE 50 MG TABLET PO SCH (08:19)
[2020-11-10] MEDS ORDERED: FluvoxaMINE MALEATE 50 MG TABLET PO ONE (10:30)
[2020-11-10 16:00] VITALS: BP 128/85
[2020-11-10] MEDS ORDERED: INFLUENZA VIRUS VACCINE QVS 2020-21 (6MO+)/PF 60 MCG/0.5 ML SYRINGE IM ONE (16:00)
[2020-11-10 17:03] LABS: COVID AG,FIA SOURCE NASOPHARYNGEAL
[2020-11-10] MEDS: QUEtiapine FUMARATE 300 MG TABLET PO SCH (20:13)
[2020-11-11] MEDS: OMEGA-3/DHA/EPA/FISH OIL 1,000 MG CAPSULE PO SCH (08:39)
[2020-11-11] MEDS: GABAPENTIN 300 MG CAPSULE PO SCH ×2 (08:39→16:02)
[2020-11-11] MEDS: FluvoxaMINE MALEATE 50 MG TABLET PO SCH (08:39)
[2020-11-11 10:00] VITALS: BP 110/77
[2020-11-11 16:12] VITALS: BP 132/78
[2020-11-11] MEDS: QUEtiapine FUMARATE 300 MG TABLET PO SCH (20:26)
[2020-11-12 09:01] VITALS: BP 115/76
[2020-11-12] MEDS: FluvoxaMINE MALEATE 50 MG TABLET PO SCH (09:23)
[2020-11-12] MEDS: GABAPENTIN 300 MG CAPSULE PO SCH ×2 (09:24→17:16)
[2020-11-12] MEDS: OMEGA-3/DHA/EPA/FISH OIL 1,000 MG CAPSULE PO SCH (09:24)
[2020-11-12 17:01] VITALS: BP 131/90
[2020-11-12] MEDS: QUEtiapine FUMARATE 300 MG TABLET PO SCH (20:45)
[2020-11-13 08:00] VITALS: BP 115/82
[2020-11-13] MEDS: GABAPENTIN 300 MG CAPSULE PO SCH ×2 (08:54→16:45)
[2020-11-13] MEDS: FluvoxaMINE MALEATE 50 MG TABLET PO SCH (08:54)
[2020-11-13] MEDS: OMEGA-3/DHA/EPA/FISH OIL 1,000 MG CAPSULE PO SCH (08:54)
[2020-11-13 16:15] VITALS: BP 104/74
[2020-11-13] MEDS: QUEtiapine FUMARATE 300 MG TABLET PO SCH (21:13)
[2020-11-14 08:00] VITALS: BP 115/80
[2020-11-14] MEDS: OMEGA-3/DHA/EPA/FISH OIL 1,000 MG CAPSULE PO SCH (09:03)
[2020-11-14] MEDS: GABAPENTIN 300 MG CAPSULE PO SCH ×2 (09:04→16:45)
[2020-11-14] MEDS: FluvoxaMINE MALEATE 50 MG TABLET PO SCH (09:04)
[2020-11-14 16:33] VITALS: BP 123/87
[2020-11-14] MEDS: QUEtiapine FUMARATE 300 MG TABLET PO SCH (20:17)
[2020-11-15 08:00] VITALS: BP 116/76
[2020-11-15] MEDS: GABAPENTIN 300 MG CAPSULE PO SCH ×2 (08:31→16:32)
[2020-11-15] MEDS: OMEGA-3/DHA/EPA/FISH OIL 1,000 MG CAPSULE PO SCH (08:31)
[2020-11-15] MEDS: FluvoxaMINE MALEATE 50 MG TABLET PO SCH (08:31)
[2020-11-15] MEDS: LORazepam 2 MG TABLET PO PRN (08:31)
[2020-11-15 16:00] VITALS: BP 121/80
[2020-11-15] MEDS: QUEtiapine FUMARATE 300 MG TABLET PO SCH (20:24)
[2020-11-16 08:07] VITALS: BP 116/74
[2020-11-16] MEDS: GABAPENTIN 300 MG CAPSULE PO SCH (09:09)
[2020-11-16] MEDS: FluvoxaMINE MALEATE 50 MG TABLET PO SCH (09:09)
[2020-11-16] MEDS: OMEGA-3/DHA/EPA/FISH OIL 1,000 MG CAPSULE PO SCH (09:09)
[2020-11-16] MEDS ORDERED: FLUV50 PO (12:03)
[2020-11-16] MEDS ORDERED: GABA-1181 PO (12:03)
[2020-11-16] MEDS ORDERED: QUET300T18 PO (12:03)
== END 2020-11-16 14:35 | disposition home or self-care (01) | DRG 753 ==
LOC: EMS 13:03 → 3EC 17:19
PROVIDERS: ADMIT Psychiatry & Neurology Psychiatry; ATTEND Psychiatry & Neurology Psychiatry
DX: F31.4 Bipolar disorder, current episode depressed, severe, without psychotic features (principal); F17.200 Nicotine dependence, unspecified, uncomplicated; E87.6 Hypokalemia; Z20.828 Contact with and (suspected) exposure to other viral communicable diseases; R45.851 Suicidal ideations; Z79.899 Other long term (current) drug therapy; Z91.5 Personal history of self-harm
CPT/HCPCS: 84132; 87426; 90686; G0480

== ENCOUNTER 2022-01-01 17:30 | Emergency (ER) | payer MEDICAID, OTHER ==
[~2022-01-01] VITALS: Ht 172.7 cm; Wt 88.6 kg
[~2022-01-01 17:30] MED LIST changes: +GABA-1181 PO; -LAMO25TA66 PO; -LITH300C3 PO; -LITH300T PO; +OMEG-135 PO; -QUET300T18 PO; +QUET300T19 PO
[2022-01-01 18:46] LABS: BASOPHILS % (AUTO) 0.8 % (0.0-2.0); EOSINOPHILS % (AUTO) 2.4 % (1.0-6.0); HEMATOCRIT 36.1 % (36-46); HEMOGLOBIN 12.1 g/dL (12.0-16.0); LYMPHOCYTES # (AUTO) 1.3 K/uL (1.0-4.8); MEAN CORPUSCULAR HEMOGLOBIN 28.7 pg (26.0-34.0); MEAN CORPUSCULAR HGB CONC 33.6 G/dL (31.0-37.0); MEAN CORPUSCULAR VOLUME 86 fL (80-100); MONOCYTES # (AUTO) 0.4 K/uL (0.1-1.0); MONOCYTES % (AUTO) 4.3 % (2.0-9.0); NEUTROPHILS # (AUTO) 6.5 K/uL (1.8-7.7); NEUTROPHILS % (AUTO) 77.5 % (40.0-70.0); PLATELET COUNT (AUTO) 213 K/uL (150-450); RED BLOOD CELL COUNT(AUTO) 4.23 MIL/uL (4.00-5.20); RED CELL DISTRIBUTION WIDTH 13.9 % (11.5-14.5)
[2022-01-01 18:55] LABS: ANION GAP 10 mmol/L (8-16); CALCIUM, TOTAL 9.4 mg/dL (8.8-10.5); CARBON DIOXIDE 25 mmol/L (22-29); CHLORIDE 104 mmol/L (98-107); CREATININE 0.92 mg/dL (0.60-1.30); GLOMERULAR FILTR. RATE CALC > 60 mL/min (>60); GLUCOSE,RANDOM 112 mg/dL (70-110); POTASSIUM 4.1 mmol/L (3.5-5.1); SODIUM SERUM 139 mmol/L (136-145); UREA NITROGEN, BLOOD 13 mg/dL (7-18)
[2022-01-01 19:08] LABS: ALANINE AMINOTRANSFERASE 53 U/L (12-78); ALBUMIN 3.7 g/dL (3.4-5.0); ALKALINE PHOSPHATASE 64 U/L (46-116); ASPARTATE AMINOTRANSFERASE 18 U/L (15-37); BILIRUBIN,TOTAL 0.3 mg/dL (0.1-1.0); HCG,QUANTITATIVE < 1 mIU/mL (0-6); TOTAL PROTEIN, SERUM 6.8 g/dL (6.4-8.2)
[2022-01-01] MEDS ORDERED: LevETIRAcetam 1,000 MG in DEXTROSE 5%-WATER 100 ML IV ONE (20:30)
[2022-01-01] MEDS ORDERED: LORazepam 2 MG/ML VIAL IVP ONE (20:30)
[2022-01-01] MEDS ORDERED: LEVE500T8 PO (22:00)
[2022-01-02 05:18] VITALS: BP 110/74
== END 2022-01-02 05:40 | disposition home or self-care (01) ==
LOC: EMS 17:33
DX: G40.909 Epilepsy, unspecified, not intractable, without status epilepticus (principal); R51.9 Headache, unspecified; F31.9 Bipolar disorder, unspecified; F17.210 Nicotine dependence, cigarettes, uncomplicated; Z88.8 Allergy status to other drugs, medicaments and biological substances
CPT/HCPCS: 36415; 70450; 80053; 84702; 85025; 96374; 96375; 99285; J0712; J2060; J7060